=== PATIENT | female | born 1950 | race Caucasian/White ===

== ENCOUNTER 2017-05-14 11:15 | Emergency (ER) | payer OTHER ==
[2017-05-14 11:35] VITALS: BP 133/74
[2017-05-14] MEDS ORDERED: Ibuprofen TAB* 600 MG PO ONE (11:49)
--- NOTE | 2017-05-14 12:19 | RAD ---
Indication: Pain at the base of the first metacarpal. 4 views of the right hand demonstrates degenerative changes of the first trapezium metacarpal joint. No other fractures are noted. 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
--- NOTE | 2017-05-14 13:41 | UC ---
Hand/Wrist HPI - HPI Summary HPI Summary: worsening right hand pain over the past several days---base of right 1st MC - History Of Current Complaint Chief Complaint: UCUpperExtremity Stated Complaint: HAND INJURY Time Seen by Provider: 05/14/17 11:45 Hx Obtained From: Patient ?: No Mechanism Of Injury: no injury Onset/Duration: Gradual Onset, Lasting Days - 4, Still Present Severity Initially: Moderate Severity Currently: Moderate Pain Intensity: 4 Pain Scale Used: 0-10 Numeric Character Of Pain: Aching, Throbbing Aggravating Factor(s): Movement Alleviating: Other - getting relief with 600 ibuprofen Associated Signs And Symptoms: Positive: Negative Related History: Dominant Hand Left - Allergies/Home Medications Allergies/Adverse Reactions: Allergies Allergy/AdvReac Type Severity Reaction Status Date / Time Codeine AdvReac Severe Anaphylatic Verified 11/21/15 13:18 Shock unknown inhaler Allergy See Comment Uncoded 08/11/16 12:11 PMH/Surg Hx/FS Hx/Imm Hx Previously Healthy: Yes Psychological History: Bipolar Disorder - Surgical History Surgical History: Yes Surgery Procedure, Year, and Place: partial hysterectomy. appendectomy. tonsillectomy. right breast cyst (benign). uterine suspension before endometriosis - Family History Known Family History: Positive: Hypertension - Social History Occupation: Employed Full-time Lives: With Family Alcohol Use: Occasionally Alcohol Amount: wine only Substance Use Type: None Smoking Status (MU): Former Smoker Have You Smoked in the Last Year: No When Did the Patient Quit Smoking/Using Tobacco: 1974 Review of Systems Constitutional: Negative Skin: Negative Eyes: Negative ENT: Negative Respiratory: Negative Cardiovascular: Negative Gastrointestinal: Negative Genitourinary: Negative Motor: Negative Neurovascular: Negative Musculoskeletal: Negative, Arthralgia - right 1 mc Neurological: Negative Psychological: Negative All Other Systems Reviewed And Are Negative: Yes Physical Exam Triage Information Reviewed: Yes Vital Signs: Initial Vital Signs Temp 99 F 05/14/17 11:32 Pulse 66 05/14/17 11:32 Resp 16 05/14/17 11:32 BP 133/74 05/14/17 11:32 Pulse Ox 99 05/14/17 11:32 Eye Exam: Normal ENT Exam: Normal Dental Exam: Normal Neck exam: Normal Neck: Positive: 1 Respiratory Exam: Normal Cardiovascular Exam: Normal Abdominal Exam: Normal Musculoskeletal Exam: Normal Musculoskeletal: Positive: Strength Limited @ - right thumb, ROM Limited @ - right thumb Neurological Exam: Normal Psychological Exam: Normal Skin Exam: Normal Diagnostics - Radiology No standard instances Xray Interpretation: Positive (See Comments) - degenerative changes right [employer] Radiology Interpretation Completed By: Radiologist Hand/Wrist Course/Dx - Course Course Of Treatment: blas, NSAIDS, follow with orthopedic md - Differential Dx/Diagnosis Differential Diagnosis/HQI/PQRI: Bursitis, Contusion, Sprain, Strain Provider Diagnoses: Degenerative changes rigth [facility] Discharge - Discharge Plan Condition: Stable Disposition: HOME Prescriptions: Ibuprofen TAB* [Motrin TAB* 600 MG] 600 mg PO Q6H PRN #40 tab PRN Reason: pain Patient Education Materials: Arthritis (ED) Referrals: Flores Ruiz MD [Medical Doctor] - 2 Weeks
== END 2017-05-14 12:35 | disposition home or self-care (01) ==
LOC: UCEAST 11:15
DX: M19.041 Primary osteoarthritis, right hand (principal); Z87.891 Personal history of nicotine dependence
CPT/HCPCS: 99212; A9270-GY; G0463

== ENCOUNTER 2019-10-20 08:25 | Emergency (ER) | payer MEDICARE ==
--- OUTSIDE RECORDS SUMMARY | 2019-10-20 08:34 | XMS REPORT | Continuity of Care Document ---
:1950 External Reference #:[id number] Author Name Slick Espinoza M.D. (transmitted by agent of provider Jessica Rodriguez) Address [address], [place] [address] Care Team Providers Name Role Phone Gaye Medina M.D. - Family Care Team Information Piano Refinisher [phone] Medicine Problems Active Problems Provider Date Generalized convulsive epilepsy Fatoumata Calles NP Onset: 01/23/2015 Social History Type Date Description Comments Sex Unknown ETOH Use Occasionally consumes alcohol Tobacco Use Start: Unknown End: Patient is a former smoker Unknown Recreational Drug Use Never Used Drugs Smoking Status Reviewed: 10/03/19 Patient is a former smoker Exercise Type/Frequency Exercises regularly Allergies, Adverse Reactions, Alerts Active Allergies Reaction Severity Comments Date Codeine Anaphylaxis Severe 09/22/2012 Medications Active Medications SIG Qnty Indications Ordering Date Provider Lamictal 1 by mouth every 30tabs Slick Green 02/25/2013 100mg Tablets day Ольга Espinoza Multivitamins 1 capsule daily 30caps Unknown Capsules Ibuprofen 1 tab po prn 100tabs Unknown 200mg Tablets Medications Administered in Office Medication SIG Qnty Indications Ordering Provider Date Influenza,Unspecified Unknown 11/21/2017 Injection Immunizations Description No Information Available Vital Signs Date Vital Result Comment 10/03/2019 8:56am Height 67 inches 5'7" Weight 190.00 lb Heart Rate 68 /min BP Systolic 140 mmHg BP Diastolic 80 mmHg BMI (Body Mass Index) 29.8 kg/m2 07/11/2019 12:51pm Height 67 inches 5'7" Heart Rate 80 /min BP Systolic Sitting 132 [address] reg cuff BP Diastolic Sitting 80 [address] reg cuff BP Systolic Standing 132 mmHg lue reg cuff BP Diastolic Standing 80 mmHg lue reg cuff BP Systolic Lying Down 132 mmHg lue reg cuff BP Diastolic Lying Down 80 mmHg lue reg cuff Respiratory Rate 14 /min Ejection Fraction none Results Description No Information Available Procedures Date Code Description Status 08/02/2019 99741 ECHO Transthoracic, Real-Time 2D With Doppler And Color Completed Flow 08/02/2019 24697 ECHO Transthoracic, Real-Time 2D With Doppler And Color Completed Flow 07/11/2019 22104 EKG Tracing & Interpretation Completed Medical Devices Description No Information Available Encounters Type Date Location Provider Dx Diagnosis Office Visit 07/11/2019 [facility] Lashelldanna Nazario, R07.9 Chest pain, 1:00p Of [facility] M.D. unspecified R53.83 Other fatigue R00.2 Palpitations R94.39 Abnormal result of other cardiovascular function study Assessments Date Code Description Provider 10/03/2019 G40.209 Localization-related (focal) (partial) Slick Espinoza M.D. symptomatic epilepsy 10/03/2019 Z79.899 [facility] (current) drug therapy Slick Espinoza M.D. 08/02/2019 R07.9 Chest pain, unspecified Lashell Nazario M.D. 08/02/2019 R07.9 Chest pain, unspecified Traveling ECHO 1 07/11/2019 R07.9 Chest pain, unspecified Lashell Nazario M.D. 07/11/2019 R53.83 Other fatigue Lashell Nazario M.D. 07/11/2019 R00.2 Palpitations Lashell Nazario M.D. 07/11/2019 R94.39 Abnormal result of other cardiovascular Lashell Nazario M.D. function study Plan of Treatment Future Appointment(s):10/03/2020 8:30 am - Slick Espinoza M.D. 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
[2019-10-20 08:52] VITALS: BP 138/91
--- NOTE | 2019-11-25 21:50 | UC ---
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 she states she twisted it a few days ago. The pain is keeping her awake at night. no numbness or tingling. Pleasant 69 female c/o pain L knee, progressively worse. Hard to walk. Twisted a few days ago. No other injury. no known prior injury. no rash no fever / chills / st - History of Current Complaint Chief Complaint: UCLowerExtremity Stated Complaint: KNEE PAIN Time Seen by Provider: 10/20/19 10:23 Hx Obtained From: Patient Pain Intensity: 0 - Allergy/Home Medications Allergies/Adverse Reactions: Allergies Allergy/AdvReac Type Severity Reaction Status Date / Time codeine Allergy Anaphylatic Verified 10/20/19 08:50 Shock environmental Allergy Congestion Uncoded 10/20/19 08:50 unknown inhaler Allergy See Comment Uncoded 10/20/19 08:50 Home Medications: Home Medications Ibuprofen TAB* [Motrin TAB* 600 MG] 400 mg PO Q6H PRN 10/20/19 [History Confirmed 10/20/19] PMH/Surg Hx/FS Hx/Imm Hx Previously Healthy: Yes - Surgical History Surgical History: Yes Surgery Procedure, Year, and Place: partial hysterectomy. appendectomy. tonsillectomy. right breast cyst (benign). uterine suspension before endometriosis - Family History Known Family History: Positive: Hypertension - Social History Alcohol Use: Occasionally Alcohol Amount: wine only Substance Use Type: None Smoking Status (MU): Former Smoker Have You Smoked in the Last Year: No When Did the Patient Quit Smoking/Using Tobacco: 1974 Review of Systems All Other Systems Reviewed And Are Negative: Yes Constitutional: Positive: Negative Skin: Positive: Negative Eyes: Positive: Negative ENT: Positive: Negative Respiratory: Positive: Negative Cardiovascular: Positive: Negative Gastrointestinal: Positive: Negative Genitourinary: Positive: Negative Motor: Positive: Other - see hpi Neurovascular: Positive: Negative Musculoskeletal: Positive: Arthralgia Neurological: Positive: Negative Psychological: Positive: Negative Is Patient Immunocompromised?: No Physical Exam Triage Information Reviewed: Yes Appearance: Well-Nourished - sitting up in exam chair looks uncomfortable, klaudia with exam but nad Vital Signs: Initial Vital Signs Temp 98.2 F 10/20/19 08:44 Pulse 75 01/02/20 08:44 Resp 18 10/20/19 08:44 BP 138/91 10/20/19 08:44 Pulse Ox 96 10/20/19 08:44 Vital Signs Reviewed: Yes Eye Exam: Normal ENT Exam: Normal Neck exam: Normal - nontender Respiratory Exam: Normal Cardiovascular Exam: Normal Abdominal Exam: Normal Musculoskeletal Exam: Other - L knee + swollen, not red + tender ant-med knee, also post knee without ben laxity, but + pain precludes full laxity exam Distal sens + LT Foot / ankle nontender Neurological Exam: Normal - grossly nonfocal distal sens + LT Psychological Exam: Normal - nad Skin Exam: Normal - no visible or reported rash Course/Dx - Course Course Of Treatment: Reviewed xray reports Reviewed coa / tx plan Reviewed f/u recommendations Sx suggestive of meniscal damage, although c/n exclude other. + arthritic changes as well Ms. Isaacs was given the opportunity to ask several insightful questions, to which I answered to the best of my ability. - Diagnoses Provider Diagnosis: Knee injury, Arthritis Discharge ED - Sign-Out/Discharge Documenting (check all that apply): Patient Departure All imaging exams completed and their final reports reviewed: Yes - Discharge Plan Condition: Stable Disposition: HOME Prescriptions: Diclofenac 1% GEL (NF) [Voltaren 1% GEL (NF)] 1 applic TOPICAL Q8H PRN #1 tube PRN Reason: Pain - Moderate Naproxen TAB* [Naprosyn 250 mg TAB*] 500 mg PO Q12H PRN #30 tab PRN Reason: Pain - Moderate Patient Education Materials: Osteoarthritis (ED), Meniscus Tear (ED) Referrals: Marlyn Godfrey MD [Medical Doctor] - Gaye Medina MD [Primary Care Provider] - Additional Instructions: Follow up with orthopedic surgeon - please try to schedule an appointment within the next 7- 10 days. Seek medical attention for worse or new problems in the meantime. Please check with your primary care physician to see if there is an additional or alternate analgesic (pain medication) of consideration. Elevate frequently. Offload (use crutches) as much as possible. You have arthritis, and likely internal knee wear and tear. Possible - although NOT DEFINITE - meniscus damage (as discussed). Additional and / or alternate diagnoses may be possible as well. Please follow up with orthopedic surgeon. - Billing Disposition and Condition Condition: STABLE Disposition: Home
== END 2019-10-20 12:04 | disposition home or self-care (01) ==
LOC: UCEAST 08:25
DX: S89.92XA Unspecified injury of left lower leg, initial encounter (principal); M17.12 Unilateral primary osteoarthritis, left knee; Z88.5 Allergy status to narcotic agent; Z88.8 Allergy status to other drugs, medicaments and biological substances; Z91.09 Other allergy status, other than to drugs and biological substances; Z87.891 Personal history of nicotine dependence; X50.1XXA Overexertion from prolonged static or awkward postures, initial encounter; Y92.9 Unspecified place or not applicable
CPT/HCPCS: 99213; G0463